=== PATIENT | male | born 1960 | race Caucasian/White ===

== ENCOUNTER → 2017-12-01 | Outpatient (CLI) | payer SELFPAY ==
[~2017-12-01] MED LIST: LEXAPRO 5MG5 MG PO; NKA; ULTRAM50 MG PO
== END ==
LOC: COL.CARD 06:39
DX: I10 Essential (primary) hypertension (principal)

== ENCOUNTER 2019-05-06 16:16 | Emergency (ER) | payer SELFPAY ==
[~2019-05-06] VITALS: Ht 172.7 cm; Wt 97.7 kg
[2019-05-06 16:38] LABS: BASO # 0.1 (0.0-0.2); BASO % 0.6 % (0.0-2.0); EOS # 0.1 (0.0-0.7); EOS % 0.8 % (0-4.0); GRAN # 9.5 (1.4-6.5); GRAN % 68.2 % (42.2-75.2); HEMATOCRIT 41.7 % (42.0-52.0); HEMOGLOBIN 13.7 g/dl (13.5-18.0); LYMPH % 21.2 % (20.0-51.0); MEAN CELL VOLUME 82 fl (80.0-100.0); MEAN CORPUSCULAR HEMOGLOBIN 27 pg (27.0-31.0); MEAN CORPUSCULAR HGB CONC 33 g/dl (33.0-37.0); MEAN PLATELET VOLUME 9.8 fl (7.4-10.4); MONO # 1.2 (0.1-0.6); MONO % 8.8 % (1.7-9.3); PLATELET COUNT 582 K/mm3 (130-400); RED BLOOD COUNT 5.11 M/mm3 (4.20-5.60)
[2019-05-06 16:42] LABS: PROTHROMBIN TIME 11.6 SECONDS (9.7-12.8)
[2019-05-06 16:44] LABS: PARTIAL THROMBOPLASTIN TIME 27.9 SECONDS (26.0-37.0)
[2019-05-06 16:52] LABS: ALBUMIN 4.6 gm/dL (3.5-5.0); BILIRUBIN,TOTAL 0.8 mg/dL (0.0-1.0); CALCIUM 9.7 mg/dL (8.4-10.2); CREATININE, serum 0.97 (0.66-1.25); POTASSIUM 3.6 mmol/L (3.4-5.0); TOTAL PROTEIN 7.8 gm/dL (6.4-8.2)
[2019-05-06 17:04] LABS: TROPONIN-I 0.746 ng/mL (0.000-0.035)
[2019-05-06 18:00] VITALS: BP 144/94; PULSE 70; TEMP 98
== END 2019-05-06 18:22 | disposition short-term general hospital (02) ==
LOC: COL.ER 16:16
PROVIDERS: Family Medicine
DX: I21.9 Acute myocardial infarction, unspecified (principal); I10 Essential (primary) hypertension
CPT/HCPCS: J2270; J3101; Q9967

== ENCOUNTER 2019-06-08 13:11 | Outpatient (RCR) | payer SELFPAY | END 2019-06-20 06:15 | disposition home or self-care (01) | LOC: COL.CR 13:11 | DX: Z48.812 Encounter for surgical aftercare following surgery on the circulatory system (principal); Z98.61 Coronary angioplasty status; I21.3 ST elevation (STEMI) myocardial infarction of unspecified site ==